=== PATIENT | female | born 1995 ===

== ENCOUNTER → 2019-03-30 | Outpatient (CLI) | payer OTHER ==
--- NOTE | 2019-03-30 16:58 | Diagnostic Imaging Report ---
INDICATION: Right knee pain. TECHNIQUE: AP, oblique, and lateral views of the right knee were obtained. FINDINGS: No fracture or acute bony abnormality is seen. The joint spaces are unremarkable. IMPRESSION: Negative right knee. Dictated by: Dictated on workstation # [id number]
== END ==
LOC: RAD 16:35
PROVIDERS: ATTEND Nurse Practitioner Primary Care
DX: S89.91XA Unspecified injury of right lower leg, initial encounter (principal); X50.1XXA Overexertion from prolonged static or awkward postures, initial encounter; Y93.41 Activity, dancing
CPT/HCPCS: 73562

== ENCOUNTER → 2019-04-28 | Outpatient (CLI) | payer OTHER ==
--- NOTE | 2019-04-28 10:40 | Diagnostic Imaging Report ---
PROCEDURE: MRI right joint lower extremity without contrast. TECHNIQUE: Multiplanar, multisequence non contrast-enhanced MRI of the right lower extremity was accomplished. INDICATION: Knee pain There are no prior MRI examinations available for comparison. Plain film examination of the right knee performed on 03/30/2019 failed to show any sign of an acute bony abnormality.. This study is less than optimal due to motion artifact. On the proton fat-saturated sagittal series the anterior cruciate ligament is not well visualized. I do suspect that the ACL is at least partially if not completely torn. The posterior cruciate ligament, the quadriceps and infrapatellar tendons, the collateral ligaments, the biceps femoris and the iliotibial band are intact. There is no sign of a tear in the medial or lateral retinaculum. The menisci are not well visualized due to the motion artifact. There is an area of altered signal within the posterior horn of the medial meniscus. This finding is suspicious for a tear. The lateral meniscus is intact. On the axial T2 fat saturated series there is a poorly defined 8 x 19 mm area of increased signal. Along the posterior aspect of the proximal tibia just lateral to midline. This does suggest bone edema. It may be related to a recent contusion and/or microfracture. There is no other abnormal signal arising from the osseous structures to indicate bone edema or a fracture. The knee joint itself is well maintained. There is a small joint effusion present. There is no evidence for a Allen's cyst. IMPRESSION: 1. The poor visualization of the anterior cruciate ligament would indicate that the ACL is at least partially if not completely torn. The other major ligaments and tendons are intact. 2. The small area of altered signal in the posterior horn of the medial meniscus is suspicious for a tear. The meniscus is difficult to evaluate however due to motion artifact. 3. The lateral meniscus appears to be intact. 4. The abnormal signal along the posterior lateral aspect of the proximal tibia does suggest bone edema. Most likely this is related to a recent contusion and/or microfracture. 5. There is a small joint effusion present. Dictated by: Dictated on workstation # [id number]
== END ==
LOC: RAD 07:56
PROVIDERS: ATTEND Nurse Practitioner
DX: S83.511A Sprain of anterior cruciate ligament of right knee, initial encounter (principal); M25.461 Effusion, right knee
CPT/HCPCS: 73721